=== PATIENT | female | born 1975 | race African-American/Black ===

== ENCOUNTER 2020-11-08 16:56 | Emergency (ER) | payer OTHER ==
[~2020-11-08] VITALS: Ht 167.6 cm; Wt 97.0 kg
[2020-11-08] MEDS ORDERED: PROCHLORPERAZINE 10 MG/2 ML VIAL. IV ONE (17:30)
[2020-11-08] MEDS ORDERED: IV NORMAL SALINE 1,000ML 1,000 ML IV ONE (17:30)
[2020-11-08] MEDS ORDERED: diphenhydrAMINE 50 MG/ML VIAL IVP ONE (17:30)
[2020-11-08] MEDS ORDERED: KETOROLAC 30 MG/ML VIAL. IVP ONE (18:00)
--- NOTE | 2020-11-08 18:43 | PHYS DOC ---
Past History Past Medical History: No Pertinent History (PATRICIA LOZANO APRN) Past Surgical History: (PATRICIA LOZANO APRN) Alcohol Use: None (PATRICIA LOZANO APRN) Adult General Chief Complaint Chief Complaint: HEADACHE HPI HPI Patient is a 45-year-old female presents emergency department complaining of a migraine headache that started last Monday. Patient states this headache presented and is lasting like all her other migraines. Patient states [facility] that was read negative and was told to follow-up with neurology, patient states she is unable to go see neurology at the [facility] which is where she has had all of her headache management done. Patient states she decided today to come here instead. Patient states that she drove and she will have someone come and get her if she can get some narcotics. Patient denies nausea, vomiting, diarrhea, chest pains, shortness of breath. Patient denies any recent fever or chills. Patient denies any other physical symptoms or health concerns. Patient states nothing really helps her with her migraine headaches, patient states she recently changed primary care physicians and sees a doctor NIDIA at [facility]. Patient states that her headache is not relieved with Tylenol or Motrin. Patient denies COVID-19 symptoms, denies COVID-19 exposure. (PATRICIA LOZANO APRN) Review of Systems Review of Systems 14 body systems of review of systems have been reviewed. See HPI for pertinent positives and negative responses, otherwise all other systems are negative, nonpertinent or noncontributory. (PATRICIA LOZANO APRN) Current Medications Current Medications Current Medications Medications (Trade) Dose Ordered Sig/No Start Time Stop Time Status Last Admin Dose Admin Diphenhydramine HCl (Benadryl) 50 mg 1X ONCE 11/08/20 17:30 11/08/20 17:36 DC 11/08/20 18:11 50 MG Ketorolac Tromethamine (Toradol 30mg Vial) 30 mg 1X ONCE 11/08/20 18:00 11/08/20 18:01 DC 11/08/20 18:12 30 MG Prochlorperazine Edisylate (Compazine) 10 mg 1X ONCE 11/08/20 17:30 11/08/20 17:36 DC 11/08/20 18:11 10 MG Sodium Chloride 1,000 ml @ 1,000 mls/hr 1X ONCE 11/08/20 17:30 11/08/20 18:29 DC 11/08/20 18:11 1,000 MLS/HR (PATRICIA LOZANO APRN) Allergies Allergies Allergies Coded Allergies Type Severity Reaction Last Updated Verified No Known Drug Allergies 11/08/20 No (PATRICIA LOZANO APRN) Physical Exam Physical Exam Constitutional: Well developed, well nourished, no acute distress, non-toxic appearance. Patient is in no apparent distress, patient is complaint of pain is much higher than presentation and appearance of patient HENT: Normocephalic, atraumatic, bilateral external ears normal, oropharynx moist, no oral exudates, nose normal. Eyes: PERRLA, EOMI, conjunctiva normal, no discharge. Neck: Normal range of motion, no tenderness, supple, no stridor. No meningismus signs, no nuchal rigidity. Cardiovascular:Heart rate regular rhythm, no murmur, heart sounds S1-S2 auscultation. Lungs & Thorax: Bilateral breath sounds clear to auscultation all lung charles. Abdomen: Bowel sounds normal, soft, no tenderness, no masses, no pulsatile jorge luis s. Skin: Warm, dry, no erythema, no rash. Back: No tenderness, no CVA tenderness. Extremities: No tenderness, no cyanosis, no clubbing, ROM intact, no edema. Neurologic: Alert and oriented X 3, normal motor function, normal sensory function, no focal deficits noted. Psychologic: Affect normal, judgement normal, mood normal. (PATRICIA LOZANO APRN) Current Patient Data Vital Signs Vital Signs Date Time Temp Pulse Resp B/P (MAP) Pulse Ox O2 Delivery O2 Flow Rate FiO2 11/08/20 17:00 97.9 103 16 119/67 (84) 97 Room Air (PATRICIA LOZANO APRN) EKG EKG [] (PATRICIA LOZANO APRN) Radiology/Procedures Radiology/Procedures [] (PATRICIA LOZANO APRN) Heart Score Risk Factors: Risk Factors: DM, Current or recent (<one month) smoker, HTN, HLP, family history of CAD, obesity. Risk Scores: Risk Factors: DM, Current or recent (<one month) smoker, HTN, HLP, family history of CAD, obesity. (PATRICIA LOZANO APRN) Course & Med Decision Making Course & Med Decision Making Pertinent Labs and Imaging studies reviewed. (See chart for details) 45-year-old female, vital signs stable, presents to the ER with migraine headache. This is the patient's first time seen at this facility for her migraines. Patient states she usually goes to the [facility] but is unable to get anyone to get rid of her headaches lately so she decided to come here. Patient reports having a negative MRI and reports being told to follow-up with neurology. Patient states that she cannot get through to neurology to make an appointment. Patient states this headache presented and last just like all of her other migraine headaches. Patient states she is not aware of any medications that helps her migraine headaches go away. Patient states she gets migraine headaches daily. Will defer CT imaging of head related to patient presentation and statement that this migraine is no different than her past migraines. ED plan, headache cocktail: 1 L normal saline, 50 mg IV Benadryl, 10 mg IV Compazine, 30 mg IV Toradol, will reevaluate after medication administration. At 1830, patient states her headache had not changed however patient states she just received her medications only moments ago. Will reevaluate after 1 hour. At 1940, patient's headache has been resolved, patient will be discharged home. Patient gave verbal understanding of discharge home instructions, follow-up with neurologist soon, follow-up with primary care for ongoing headache symptoms. Return to ER precautions and concerns. (PATRICIA LOZANO APRN) Dragon Disclaimer Dragon Disclaimer This electronic medical record was generated, in whole or in part, using a voice recognition dictation system. (PATRICIA LOZANO APRN) Departure Departure: Impression: Primary Impression: Migraine Disposition: 01 DC HOME SELF CARE/HOMELESS Condition: IMPROVED Referrals: TIGRE ZIEGLER (PCP) Patient Instructions: Migraine Headache Additional Instructions: Please follow-up with your primary care physician for ongoing migraine headaches, please follow the recommendations and follow-up with neurology soon as possible, please return emergency department for worsening symptoms or other concerns EMERGENCY DEPARTMENT GENERAL DISCHARGE INSTRUCTIONS Thank you for coming to [facility] (ED) today and trusting us with you care. We trust that you had a positivie experience in our Emergency Department. If you wish to speak to the department management, you may call the director at [phone]. YOUR FOLLOW UP INSTRUCTIONS ARE FOLLOWS: 1. Do you have a private Doctor? If you do not have a private doctor, please ask for a resource list of physicians or clinics that may be able to assist you with follow up care. 2. The Emergency Physician has interpreted your x-rays. The X-Ray specialist will also review them. If there is a change in the findings, you will be notified in 48 hours when at all possible. 3. A lab test or culture has been done, your results will be reviewed and you will be notified if you need a change in treatment. ADDITIONAL INSTRUCTIONS AND INFORMATION: 1. Your care today has been supervised by a physician who is specially trained in emergency care. Many problems require more than one evaluation for a complete diagnosis and treatment. We recommend that you schedule your follow up appointment as recommended to ensure complete treatment of you illness or injury. If you are unable to obtain follow up care and continue to have a problem, or if your condition worsens, we recommend that you return to the ED. 2. We are not able to safely determine your condition over the phone nor are we able to give sound medical advice over the phone. For these safety reasons, if you call for medical advice we will ask you to come to the ED for further evaluation. 3. If you have any questions regarding these discharge instructions please call the ED at [phone]. SAFETY INFORMATION: In the interest of safety, wellness, and injury prevention; we encourage you to wear your sealbelt, if you smoke; quite smoking, and we encourage family to use a protective helmet for bicycling and other sporting events that present an increased risk for head injury. IF YOUR SYMPTOMS WORSEN OR NEW SYMPTOMS DEVELOP, OR YOU HAVE CONCERNS ABOUT YOUR CONDITION; OR IF YOUR CONDITION WORSENS WHILE YOU ARE WAITING FOR YOUR FOLLOW UP APPOIN TMENT; EITHER CONTACT YOUR PRIMARY CARE DOCTOR, THE PHYSICIAN WHOSE NAME AND NUMBER YOU WERE GIVEN, OR RETURN TO THE ED IMMEDIATELY. Attending Co-Sign Attending Co-Sign The patient was seen and interviewed as well as examined at the bedside. The chart was reviewed. The case was discussed. Agree with the plan of care. (ZAKIA MENEZES MD) Problem Qualifiers Primary Impression: Migraine Migraine type: with aura Status migrainosus presence: without status migrainosus Intractability: not intractable Qualified Codes: G43.109 - Migraine with aura, not intractable, without status migrainosus PATRICIA LOZANO APRN Nov 08, 2020 18:43 ZAKIA MENEZES MD Nov 09, 2020 01:08
[2020-11-08 19:50] VITALS: BP 122/64
== END 2020-11-08 20:08 | disposition home or self-care (01) ==
LOC: ER 16:56
DX: G43.909 Migraine, unspecified, not intractable, without status migrainosus (principal); Z98.890 Other specified postprocedural states
CPT/HCPCS: 96361; 96374; 96375; 99284; J0780; J1200; J1885; J7030